=== PATIENT | male | born 1995 | race Caucasian/White ===

== ENCOUNTER 2022-09-23 23:03 | Inpatient (IN) | payer OTHER, SELFPAY ==
[2022-09-23 23:30] LABS: Hemoglobin 16.5 g/dL (14.0-18.0); Mean Corpuscular HGB CONC 33.1 g/dL (32.0-36.0); Mean Corpuscular Hemoglobin 31.5 pg (27.0-31.0); Mean Corpuscular Volume 95.1 fl (78.0-98.0); Mean Platelet Volume 7.4 fL (7.4-10.4); Platelet Count 223 10x3/uL (130-400); RBC Distribution Width 12.1 % (11.5-14.5); Red Blood Cell (RBC) Count 5.25 mill/uL (4.70-6.10); White Blood Cell (WBC) Count 12.6 10x3/uL (4.8-10.8)
[2022-09-23] MEDS ORDERED: Ondansetron PF 4 MG/2 ML Vial ONE (23:49)
[2022-09-23 23:50] LABS: ALT (SGPT) 69 U/L (8-55); AST (SGOT) 43 U/L (5-34); Albumin 5.6 g/dL (3.5-5.0); Alkaline Phosphatase 60 U/L (40-110); Anion Gap 20 mmol/L (10-20); BUN (Urea Nitrogen) 23 mg/dL (8.9-20.6); Calc. Creatinine Clearance 0 mL/min (70-130); Calcium 10.9 mg/dL (7.8-10.44); Carbon Dioxide 23 mmol/L (22-29); Chloride 102 mmol/L (98-107); Estimated GFR 42; Glucose 145 mg/dL (70-105); Potassium 4.6 mmol/L (3.5-5.1); Protein, Total 9.6 g/dL (6.0-8.3); Sodium 140 mmol/L (136-145)
[2022-09-23 23:53] LABS: Band 22 % (5-11); Eosinophils 10 % (0-10); Lymphocytes 6 % (21-51); MDiff Complete? YES; Monocytes 8 % (0-10); Neutrophil 54 % (42-75)
[2022-09-24] MEDS ORDERED: metroNIDAZOLE 500 MG/100 ML BAG ONE (00:41)
[2022-09-24 00:44] LABS: SARS-CoV-2 NAA Rapid Test Not Detected (NotDetected)
[2022-09-24] MEDS ORDERED: Vancomycin 1 GM/200 ML (FROZEN) BAG ONE (01:47)
[2022-09-24] MEDS ORDERED: Ondansetron PF 4 MG/2 ML Vial IVP PRN (01:49)
[2022-09-24] MEDS ORDERED: Ondansetron ODT 4 MG TAB PO PRN (01:49)
[2022-09-24] MEDS ORDERED: diphenhydrAMINE 50 MG/ML VIAL ONE (02:27)
[2022-09-24 03:17] VITALS: BMI 22.3
[2022-09-24] MEDS: Sodium Chloride 0.9% 1,000 ML IV SCH ×3 (05:02→20:10)
[2022-09-24 05:08] LABS: #Eosinphils 0.1 thou/uL (0.0-0.7); #Lymphocytes 0.3 thou/uL (1.20-3.40); #Monocytes 0.5 thou/uL (0.11-0.59); #Neutrophils 7.8 thou/uL (1.40-6.50); %Eosinophils 0.6 % (0.0-10.0); %Lymphocytes 3.2 % (21.0-51.0); %Neutrophils 90.3 % (42.0-75.0); Hemoglobin 13.1 g/dL (14.0-18.0); Mean Corpuscular HGB CONC 33.4 g/dL (32.0-36.0); Mean Corpuscular Hemoglobin 31.9 pg (27.0-31.0); Mean Corpuscular Volume 95.3 fl (78.0-98.0); Mean Platelet Volume 7.4 fL (7.4-10.4); Platelet Count 170 10x3/uL (130-400); Red Blood Cell (RBC) Count 4.11 mill/uL (4.70-6.10); White Blood Cell (WBC) Count 8.7 10x3/uL (4.8-10.8)
[2022-09-24 05:25] LABS: Lactic Acid 1.7 mmol/L (0.5-2.2)
[2022-09-24 05:41] LABS: ALT (SGPT) 46 U/L (8-55); AST (SGOT) 29 U/L (5-34); Albumin 3.9 g/dL (3.5-5.0); Alkaline Phosphatase 36 U/L (40-110); Anion Gap 13 mmol/L (10-20); BUN (Urea Nitrogen) 23 mg/dL (8.9-20.6); Bilirubin, Total 0.8 mg/dL (0.2-1.2); Calc. Creatinine Clearance 74 mL/min (70-130); Calcium 8.4 mg/dL (7.8-10.44); Carbon Dioxide 19 mmol/L (22-29); Chloride 112 mmol/L (98-107); Estimated GFR 64; Globulin 2.7 g/dL (2.4-3.5); Glucose 126 mg/dL (70-105); Potassium 4.4 mmol/L (3.5-5.1); Protein, Total 6.6 g/dL (6.0-8.3); Sodium 140 mmol/L (136-145)
[2022-09-24] MEDS: Acetaminophen 325 MG TAB PO PRN ×2 (05:42→13:14)
[2022-09-24] MEDS: metroNIDAZOLE 500 MG in Premix Bag 1 BAG IVPB SCH ×2 (08:44→18:37)
[2022-09-24] MEDS ORDERED: Famotidine 20 MG TAB PO SCH (09:00)
[2022-09-24] MEDS: Famotidine 20 MG TAB PO SCH (20:10)
[2022-09-25] MEDS: metroNIDAZOLE 500 MG in Premix Bag 1 BAG IVPB SCH ×2 (00:54→09:02)
[2022-09-25] MEDS: Sodium Chloride 0.9% 1,000 ML IV SCH (05:32)
[2022-09-25 06:06] LABS: #Lymphocytes 1.1 thou/uL (1.20-3.40); #Monocytes 0.8 thou/uL (0.11-0.59); #Neutrophils 5.9 thou/uL (1.40-6.50); %Basophils 0.1 % (0.0-1.0); %Eosinophils 11.6 % (0.0-10.0); %Lymphocytes 12.1 % (21.0-51.0); %Monocytes 8.7 % (0.0-10.0); %Neutrophils 67.5 % (42.0-75.0); Hemoglobin 11.9 g/dL (14.0-18.0); Mean Corpuscular HGB CONC 32.7 g/dL (32.0-36.0); Mean Corpuscular Volume 97.9 fl (78.0-98.0); Mean Platelet Volume 7.1 fL (7.4-10.4); Platelet Count 162 10x3/uL (130-400); RBC Distribution Width 12.1 % (11.5-14.5); Red Blood Cell (RBC) Count 3.72 mill/uL (4.70-6.10); White Blood Cell (WBC) Count 8.7 10x3/uL (4.8-10.8)
[2022-09-25 06:23] LABS: Anion Gap 9 mmol/L (10-20); BUN (Urea Nitrogen) 16 mg/dL (8.9-20.6); Calc. Creatinine Clearance 136 mL/min (70-130); Calcium 7.7 mg/dL (7.8-10.44); Carbon Dioxide 22 mmol/L (22-29); Chloride 112 mmol/L (98-107); Estimated GFR 122; Glucose 95 mg/dL (70-105); Potassium 3.9 mmol/L (3.5-5.1); Sodium 139 mmol/L (136-145)
[2022-09-25] MEDS: Famotidine 20 MG TAB PO SCH (09:01)
[2022-09-25 13:30] VITALS: BP 116/66; TEMP 98
== END 2022-09-25 12:13 | disposition home or self-care (01) | DRG 391 ==
LOC: ERS 23:03 → T4-B 09-24 01:13
PROVIDERS: ADMIT Hospitalist; ATTEND Hospitalist
DX: A08.4 Viral intestinal infection, unspecified (principal); N17.0 Acute kidney failure with tubular necrosis; A05.9 Bacterial foodborne intoxication, unspecified; Z20.822 Contact with and (suspected) exposure to COVID-19; E86.9 Volume depletion, unspecified
CPT/HCPCS: 36415; 74176; 80048; 80053; 82550; 83605; 83690; 85025; 87040; 87324; 87449; 93005; 96361; 96365; 96366; 96368; 96375; J1200; J1956; J2405; J3370-JW; J7050